=== PATIENT | male | born 1950 | race Caucasian/White ===

== ENCOUNTER 2025-06-13 08:20 | Emergency (ER) | payer MEDICARE ==
[2025-06-13] MEDS ORDERED: predniSONE 20 MG TAB ONE (09:07)
[2025-06-13] MEDS ORDERED: oxyCODONE 5 MG TAB PO SCH (09:15)
[2025-06-13] MEDS ORDERED: Acetaminophen 325 MG TAB PO SCH (09:15)
== END 2025-06-13 09:25 | disposition home or self-care (01) ==
LOC: BURERS 08:20
DX: J18.9 Pneumonia, unspecified organism (principal); J44.9 Chronic obstructive pulmonary disease, unspecified; G89.29 Other chronic pain; F17.210 Nicotine dependence, cigarettes, uncomplicated; E10.9 Type 1 diabetes mellitus without complications
CPT/HCPCS: 71046; 94799; J7512